=== PATIENT | female | born 1990 | race Caucasian/White ===

== ENCOUNTER → 2019-10-19 | Emergency (ER) ==
[~2019-10-19] MED LIST: DICLOFENAC SODI50 MG PO; PENICILLIN V P500 MG PO
[2019-10-20 12:11] VITALS: BMI 21.2
== END | disposition home or self-care (01) ==
LOC: D.ER 19:59
DX: K08.89 Other specified disorders of teeth and supporting structures (principal)

== ENCOUNTER 2019-10-20 11:39 | Emergency (ER) | payer SELFPAY ==
[~2019-10-20] VITALS: Ht 170.2 cm; Wt 61.4 kg
[2019-10-20 12:11] VITALS: Ht 170.2 cm; Wt 61.4 kg
[2019-10-20] MEDS ORDERED: DICLOFENAC SODI50 MG PO (12:36)
[2019-10-20] MEDS ORDERED: PENICILLIN V P500 MG PO (12:36)
[2019-10-20 13:03] VITALS: BP 120/66
== END 2019-10-20 13:03 | disposition home or self-care (01) ==
LOC: D.ER 11:39
DX: K02.9 Dental caries, unspecified (principal); K08.89 Other specified disorders of teeth and supporting structures